=== PATIENT | female | born 1990 | race African-American/Black ===

== ENCOUNTER 2016-05-04 12:22 | Inpatient (IN) | payer MEDICARE ==
--- NOTE | ~2016-05-04 | PN ---
Unit #: [id number] #: [id number] Patient: SOL NEWTON [id number] [facility] [address] [place] [address] [id number] MR#: [id number] NAME: SOL NEWTON ROOM: [facility] Age: 25 Sex: F Admission Date: 05/04/2016 : 1990 Attending Physician: Angel Norman M.D. Admitting Physician: Angel Norman M.D. Primary Care Physician: Generic Doctor Not In System [facility] PROGRESS NOTES DATE 05/06/2016 DISCUSSION Ms. Sinclair is a 25-year-old female seen on 05/06/2016. Patient interviewed. Chart reviewed. Obtained information from nursing staff. Patient reported hearing voices, paranoid. Subsequently, patient was given Vistaril 25 mg. Currently on Latuda and Vistaril. Mood sad, dysphoric, labile, guarded. Complete review of system unremarkable. MENTAL STATUS EXAMINATION General appearance, patient dressed in hospital attire. Attention span, concentration fair. Oriented in place and person. Mood and affect labile. Speech monotone. Thought process concrete. Patient reported hearing voices, guarded, paranoid but denied any thoughts of harming self or others but having those thoughts crossing her mind. Recent and remote memory poor. Insight and judgement poor. DIAGNOSIS Schizoaffective disorder, bipolar type. ASSESSMENT/PLAN Advised to continue with current medication and therapeutic protocol. Will monitor response to medication and make further adjustment of medication. Dictated by... Frankie Hunter/fam TD: 05/09/2016 17:29 JOB #: [id number] Unit #: [id number] #: [id number] Patient: SOL NEWTON [facility] PROGRESS NOTES Page 1 of 1 X Angel Norman MD X PROGRESS NOTE
--- NOTE | ~2016-05-04 | HP ---
Unit #: [id number] #: [id number] Patient: DOTTIE NEWTON [id number] [facility] [address] [place] [address] [id number] I MR#: [id number] NAME: DOTTIE NEWTON ROOM: P110 Age: 25 Sex: F Admission Date: 05/04/2016 : 1990 Attending Physician: Angel Norman M.D. Admitting Physician: Angel Norman M.D. Primary Care Physician: Generic Doctor Not In System HISTORY AND PHYSICAL HISTORY OF PRESENT ILLNESS Dottie is a 25 year old, admitted to [address] [place] [address] from our outpatient program after she reported to staff that she was having auditory hallucinations telling her to hurt herself. She is a poor historian so her history is taken from her chart. PAST MEDICAL HISTORY 1. Obesity. 2. Patient reports she is 22 weeks . PAST SURGICAL HISTORY Nothing reported. ALLERGIES No known drug allergies. SOCIAL HISTORY She smokes one half pack per day, denies alcohol, admits to a history of crack cocaine use but nothing since March 2016. FAMILY HISTORY Medically noncontributory. REVIEW OF SYSTEMS CONSTITUTIONAL: No fever or chills. HEENT: Denies any sore throat, ear pain or runny nose. CARDIOVASCULAR: Denies chest pain, irregular heart rhythm or palpitations. CHEST: Denies shortness of breath or cough. No hemoptysis. GASTROINTESTINAL: Denies nausea, vomiting, diarrhea or chronic constipation. ENDOCRINE: Denies history of increased thirst or urination. No recent significant weight loss or gain. GENITOURINARY: Denies dysuria, frequency, or hematuria. SKIN: Denies any rashes. HEMATOLOGIC: Denies history of increased bleeding or bruising. MUSCULOSKELETAL: Denies any hot, swollen joints. No generalized muscle pain. NEUROLOGIC: Denies problems with vision or speech. No frequent, severe headaches. No numbness, tingling or weakness in any extremities. Denies loss of bladder or bowel control. CURRENT MEDICATIONS 1. Latuda 20 mg q.h.s. Unit #: [id number] #: [id number] Patient: DOTTIE NEWTON 2. Vistaril 25 mg b.i.d. 3. Milk of magnesia p.r.n. 4. Maalox p.r.n. 5. Tylenol p.r.n. PHYSICAL EXAMINATION GENERAL: Alert, well-nourished, no apparent distress. VITAL SIGNS: Blood pressure 120/76, heart rate 64, respirations 16, and temperature 98.6. WEIGHT: 222 pounds. HEIGHT: 5 feet 1 inch. SKIN: Warm and dry without rash or lesion. HEENT: Normocephalic. TMs not viewed. Oral and nasal passages clear. Conjunctivae clear. PERRLA. EOMs intact. NECK: Supple without lymphadenopathy or thyromegaly. HEART: Regular rate and rhythm without murmur. LUNGS: Clear. ABDOMEN: Soft, nontender. : Not done. EXTREMITIES: No evidence of cyanosis, clubbing or edema. Moves all without focal deficit. NEUROLOGICAL: Grossly within normal limits. Cranial Nerves: II: Visual fiore are intact. III, IV AND : Extraocular movements are intact. Pupils are equal, round and reactive to light. V: Facial sensation is grossly normal. VII: Facial movements and expression are normal. VIII: Auditory acuity grossly intact. IX, X: Uvula is midline. Phonation is normal. XI: Patient shrugs shoulders and turns head normally. XII: Tongue protrudes in the midline. Sensory and Motor Function: Sensory and motor sensation is grossly normal. Motor: moves all extremities well. Coordination: Gait is normal. Deep Tendon Reflexes: Intact. IMPRESSION Psychiatric admission. RECOMMENDATIONS Psychiatric, per psychiatrist. MEDICAL I see no contraindications to participating in facility's activities. MEDICAL PROGNOSIS Good. MEDICAL CONDITION Stable. Dictated by... Yadi Bartholomew P.A.-C. for Frankie Manzanares/sergo TD: 05/05/2016 08:13 JOB #: [id number] Unit #: [id number] #: [id number] Patient: DOTTIE NEWTON HISTORY AND PHYSICAL Page 1 of 1 X Yadi Bartholomew HISTORY AND PHYSICAL
--- NOTE | ~2016-05-04 | PN ---
Unit #: [id number] #: [id number] Patient: SOL NEWTON [id number] [facility] [address] [place] [address] [id number] I MR#: [id number] NAME: SOL NEWTON ROOM: [facility] Age: 25 Sex: F Admission Date: 05/04/2016 : 1990 Attending Physician: Angel Norman M.D. Admitting Physician: Frankie Hunter PROGRESS NOTES DATE OF SERVICE: 05/07/2016 DISCUSSION Ms. Carmella Newton is a 25-year-old female, seen on 05/07/2016. The patient interviewed, chart reviewed, and obtained information from nursing staff. The patient reports feeling better, decrease in anxiety and paranoia, but still seclusive and isolative, but making progress. REVIEW OF SYSTEMS Complete review of systems unremarkable. MENTAL STATUS EXAMINATION General appearance, the patient dressed casually. Attention span and concentration, fair. Oriented in time, place, and person. Mood and affect were labile. Speech, monotone. Thought process, concrete. The patient denied any thoughts of harming self or others or any hallucination. Recent and remote memory, fair to poor. Insight and judgment, fair to poor. DIAGNOSIS Schizophrenia, chronic paranoid type. ASSESSMENT AND PLAN Advised to consider discharge tomorrow if the patient continues to do well with a plan to follow up in IOP level of care. Dictated by... Frankie Hunter/edelmira TD: 05/07/2016 18:55 JOB #: [id number] Unit #: [id number] #: [id number] Patient: SOL NEWTON PROGRESS NOTES Page 1 of 1 X Angel Norman MD PROGRESS NOTE
--- NOTE | ~2016-05-04 | A ---
[facility] Nutrition Therapy DATE: 05/05/16 Patient: SOL NEWTON Physician: CARL Address: [address] [facility] Room/Bed: [address], Zip: [place] [address] Admit Date: 05/04/16 Date of : [birth year] Height: 5 1 Weight: [id number] NUTRITIONAL ASSESSMENT: REASON: C/S- "PATIENT IS " PATIENT ADMITTED FOR A/V/C HALLUCINATIONS, SI, PARANOIA PMH: HX COCAINE ABUSE Anthropometrics: HT: 5'1", WT: 222#, BMI: 41.9, %IBW: 211% Labs: 05/05/16- GLU: 67, BUN: 6, NA: 133, CA: 8.0, ALB: 2.5 Meds: LATUDA, VISTARIL Assessment: CHART REVIEWED, EVENTS NOTED. PATIENT IS A 25 Y/O FEMALE ADMITTED FROM THE OUTPATIENT PROGRAM D/T A/V/C HALLUCINATIONS, PARANOIA, AND SI. PATIENT IS ALSO EXPERIENCING SEVERE ANXIETY. PATIENT IS CURRENTLY ON DISABILITY, LIVES AT [facility], SMOKES 1/2 PPD, AND DENIES CURRENT SUBSTANCE ABUSE. PATIENT HAS A HX OF COCAINE USE, WITH LAST USE IN 03/2016. PATIENT IS NOTED TO BE A POOR HISTORIAN. SHE IS CURRENTLY 5 MONTHS . SHE HAS BEEN NON-COMPLIANT WITH MEDICATIONS X 1 YEAR, AND SHE HAS A HX OF INPATIENT PSYCH HOSPITALIZATIONS. PATIENT STATED A FAIR APPETITE WITH AN 70# WEIGHT [employer] COORDINATOR LAST 5 MONTHS, AND THAT HER WEIGHT VARIES. THERE ARE CURRENTLY NO SKIN OR GI ISSUES NOTED ATT. PATIENT IS ON A REGULAR DIET WITH LARGE PORTION ENTREES. PATIENT'S BMI IS 41.9, WHICH IS ABOVE A HEALTHY RANGE, AND SHE IS 211% OF HER IBW. DIET EDUCATION INAPPROPRIATE ATT, HOWEVER THIS RD WILL CONTINUE TO F/U WITH PATIENT AND HER PO INTAKES AND WEIGHT. Dx: ADEQUATE NUTRIENT INTAKE R/T CURRENT CONDITION AEB FAIR APPETITE, NO NUTRITIONAL RISK POINTS, NO KNOWN WEIGHT LOSS Intervention: 1. REGULAR DIET, 2. MEDS PER MD, 3. PSYCH Monitoring, Evaluation and Goals: 1. ADEQUATE PO INTAKES >50% OF MEALS 2. PREVENT, CORRECT MICRO/MACRO NUTRIENT DEFICIENCIES MONITOR: WEIGHTS, LABS, PO/FLUID INTAKES Recommendations: 1. CONTINUE REGULAR DIET TOLERATED. PATIENT IS CURRENTLY 22 WEEKS AND SHOULD INCREASE HER CALORIC INTAKE BY A MAXIMUM 340 KCALS DAILY. D/T PATIENT'S OBESE STATUS, [facility] Nutrition Therapy DATE: 05/05/16 Patient: SOL NEWTON Physician: CARL Address: [address] [facility] Room/Bed: [address], Zip: [place] [address] Admit Date: 05/04/16 Date of : [birth year] Height: 5 1 Weight: [phone] PATIENT SHOULD ONLY GAIN 11-20# OVER THE COURSE OF HER ENTIRE . RECOMMEND ONLY INCREASING LARGE PORTION ENTREES AT DINNER DURING 2ND TRIMESTER. 2. ENCOURAGE ADEQUATE PO AND FLUID INTAKES 3. ADD A MVI TO DAILY MEDICATION REGIMEN FOR ADDED NUTRIENT SUPPORT 4. OBTAIN WEIGHT ROUTINELY (EVEYR 3-4 DAYS) TO ENSURE PATIENT IS CONSUMING ADEQUATE KCAL INTAKE 5. CONSULT RD WITH ANY FURTHER NUTRIITON CONCERNS. WILL CONTINUE TO MONITOR WEIGHTS AND PO INTAKES. RD TO F/U PER PROTOCOL AND PRN R/T PATIENT MILDLY COMPROMISED Respectfully, OLIVIA CORRAL, RD, LD [employer] [facility] cc: client file
--- NOTE | ~2016-05-04 | PN ---
Unit #: [id number] #: [id number] Patient: SOL NEWTON [id number] [facility] [address] [place] [address] [id number] MR#: [id number] NAME: SOL NEWTON ROOM: P258 Age: 25 Sex: F Admission Date: 05/04/2016 : 1990 Attending Physician: Angel Norman M.D. Admitting Physician: Angel Norman M.D. Primary Care Physician: Generic Doctor Not In System [facility] PROGRESS NOTES DATE OF SERVICE: 05/05/2016 DISCUSSION Ms. Saul Newton is a 25-year-old female, seen on 05/05/2016. The patient interviewed, chart reviewed, obtained information from nursing staff. The patient was compliant and cooperative. Mood, sad and dysphoric. Flat affect, guarded. The patient reported hearing voices and having suicidal ideation. REVIEW OF SYSTEMS Complete review of systems unremarkable. MENTAL STATUS EXAMINATION General appearance, the patient dressed casually. Attention span and concentration, fair. Oriented in place and person. Mood and affect were sad and dysphoric. Speech, monotone. Thought process, concrete. The patient reported having hallucination, suicidal ideation, guarded, and paranoid. Recent and remote memory, poor. Insight and judgment, poor. DIAGNOSES Schizophrenia, chronic paranoid type versus schizoaffective disorder. ASSESSMENT AND PLAN Advised to continue with current medication and therapeutic protocol. We will monitor response to medication and make further adjustment of medication. The patient's test is positive. Quantitative test pending. CBC was remarkable for hemoglobin 10.1. Thyroid function tests within normal range. CMP remarkable for sodium 133 and glucose 67. Ordered dietary consult as the patient is and requested for larger portion, which was ordered. We will continue to follow. Please feel free to call if any questions. Dictated by... Angel Norman M.D. ARIA/edelmira TD: 05/05/2016 16:22 JOB #: [id number] Unit #: [id number] #: [id number] Patient: SOL NEWTON PROGRESS NOTES Page 1 of 1 X Angel Norman MD PROGRESS NOTE
--- NOTE | ~2016-05-04 | DS ---
Unit #: [id number] #: [id number] Patient: SOL NEWTON [id number] [facility] [address] [place] [address] [id number] MR#: [id number] NAME: SOL NEWTON ROOM: [facility] Age: 25 Sex: F Admission Date: 05/04/2016 : 1990 Discharge Date: 05/08/2016 Attending Physician: Angel Norman M.D. DISCHARGE SUMMARY REASON FOR ADMISSION Hallucination. DIAGNOSTIC STUDIES LABORATORY RESULTS: Remarkable for glucose 67, sodium 133, calcium 8.0. test positive. HOSPITAL COURSE The patient was admitted to inpatient unit on 05/04/2016 and discharged on 05/08/2016. The patient was treated on the inpatient unit with group therapy, individual therapy, medication management. The patient responded well with the above modalities of treatment and following medication; Latuda and Vistaril. Subsequently, the patient was discharged with a plan to follow up in outpatient program. DISCHARGE MEDICATIONS Latuda 20 mg daily for mood stabilization and psychosis, Vistaril 25 mg b.i.d. for anxiety, vitamin supplement. DISCHARGE DIAGNOSES Psychiatric: Bipolar mood disorder, not otherwise specified, F31.89; rule out schizophrenia, F20.0. Secondary diagnosis: Deferred. Medical diagnosis: . Stressors: Psychosocial stressor. DISCHARGE INSTRUCTIONS The patient to follow up in outpatient clinic as per social work coordinator. CONDITION ON DISCHARGE The patient was pleasant and cooperative. Denied any psychotic symptom or any suicidal ideation. PROGNOSIS Guarded. DIET AND ACTIVITY As tolerated. Unit #: [id number] #: [id number] Patient: SOL NEWTON Dictated by... Frankie Hunter/edelmira TD: 05/09/2016 01:34 JOB #: [id number] DISCHARGE SUMMARY Page 1 of 1 X Angel Nomran MD X DISCHARGE SUMMARY
--- NOTE | ~2016-05-04 | PN ---
Unit #: [id number] #: [id number] Patient: SOL NEWTON [id number] [place] [address] [id number] MR#: [id number] NAME: SOL NEWTON ROOM: P258 Age: 25 Sex: F Admission Date: 05/04/2016 : 1990 Attending Physician: Angel Norman M.D. Admitting Physician: Angel Norman M.D. Primary Care Physician: Generic Doctor Not In System [facility] PROGRESS NOTES DATE OF SERVICE: 05/03/2016 SUBJECTIVE Ms. Sinclair is a 25-year-old female, seen on 05/03/2016. The patient is currently 28 weeks and compliant with medication. The patient reports that she had a good visit and her daughter also approved for medication. The patient is currently on combination of Latuda and Vistaril. The patient denied any side effects from medication, pleasant and cooperative during interview. Denied any use of drugs or alcohol. REVIEW OF SYSTEMS Complete review of systems unremarkable. MENTAL STATUS EXAMINATION General appearance, the patient dressed casually. Attention span and concentration, fair. Oriented in time, place, and person. Mood and affect were sad and dysphoric. Speech, monotone. Thought process, concrete. The patient denied any thoughts of harming self or others, but still having hallucination, paranoia. Denied any command hallucination. Recent and remote memory, fair to poor. Insight and judgment, fair to slightly impaired. DIAGNOSES Bipolar mood disorder, not otherwise specified, F31.89. ASSESSMENT AND PLAN 1. Supportive psychotherapy and psychoeducation provided to the patient. 2. Educated about benefits and side effects of medication and course and prognosis of illness. 3. The patient was given crisis line #[phone]. 4. Advised to continue with current combination of Vistaril 25 mg b.i.d. and Latuda 25 mg at bedtime. If needed, consider further adjustment of medication. Dictated by... Angel Norman M.D. ARIA/edelmira Unit #: [id number] #: [id number] Patient: SOL NEWTON TD: 05/08/2016 20:56 JOB #: [id number] [facility] PROGRESS NOTES Page 1 of 1 X Angel Norman MD PROGRESS NOTE
--- NOTE | ~2016-05-04 | TN ---
Unit #: [id number] #: [id number] Patient: SOL NEWTON [id number] [facility] [address] [place] [address] [id number] I MR#: [id number] NAME: SOL NEWTON ROOM: P258 Age: 25 Sex: F Admission Date: 05/04/2016 : 1990 Discharge Date: Attending Physician: Angel Norman M.D. LOC TRANSFER NOTE DATE OF SERVICE: 05/04/2016 The patient was transferred from outpatient to inpatient level of care on 05/04/2016. ORIGINAL REASON FOR ADMISSION TO THE HOSPITAL Depression and anxiety. DISCHARGE MEDICATIONS Name, dosage, indication for use: Latuda 20 mg daily for mood stabilization and Vistaril 25 mg t.i.d. for anxiety. RESPONSE TO TREATMENT Poor. REASON FOR TRANSFER TO ANOTHER LEVEL OF CARE The patient transferred from outpatient program to inpatient level of care because of deterioration of the patient's condition. The patient reported not taking her medication, increasingly paranoid, having command hallucination and suicidal ideation. Denied any homicidal ideation. The patient reported increase in symptoms and increase in auditory and visual hallucination. Reports children playing, reports smelling things, also reported seeing things, and suicidal thoughts. Unable to contract for safety. Needing inpatient admission. CURRENT SYMPTOMATOLOGY AND CLINICAL JUSTIFICATION FOR TRANSFER Please see above. COMPLETE REVIEW OF SYSTEMS HEENT: Eyes, clear. Ears, nose, mouth, and throat; clear. CARDIOVASCULAR: Unremarkable. RESPIRATORY: Unremarkable. GI: Unremarkable. : Unremarkable. SKIN: Unremarkable. LYMPH NODE: Unremarkable. NEUROLOGIC: Unremarkable. ENDOCRINE: Unremarkable. HEMATOLOGIC: Unremarkable. ALLERGIC/IMMUNOLOGIC: Unremarkable. MUSCULOSKELETAL: Muscle strength and tone, no atrophy or abnormal movement. Gait normal. Unit #: [id number] #: [id number] Patient: SOL NEWTON MENTAL STATUS EXAMINATION CONSTITUTIONAL: Measurement of vital signs; temperature 98.3, heart rate 64, respiratory rate 16, and blood pressure 120/76. Height 5 feet 1 inch and weight 222 pounds. GENERAL APPEARANCE: The patient dressed casually. The patient did not show any facial deformity. MUSCULOSKELETAL: Please see above. PSYCHIATRIC EXAMINATION Description of speech, regular rate. Description of thought process, goal directed. Description of association, intact. Description of abnormal psychotic thinking; guarded, paranoid, having suicidal ideation and command hallucination. Description of the patient's judgment: Concerning everyday activity, poor. Social situation, poor. Concerning psychiatric condition, poor. Complete mental status examination; oriented in time, place, and person. Recent and remote memory, fair. Attention span and concentration, fair. Language, able to name object and repeat phrases. Fund of knowledge, aware of current event and passive vocabulary intact. Mood and affect, sad and dysphoric. Insight and judgment, fair to poor. ADMITTING DIAGNOSES Psychiatric: Bipolar mood disorder, not otherwise specified, F31.89; rule out schizophrenia, F20.0; and rule out schizoaffective disorder. Secondary diagnosis: Deferred. Medical diagnosis: . Stressors: Psychosocial stressors. PSYCHIATRIC PLAN AND TREATMENT GOAL AND DISCHARGE PLAN 1. Advised to admit the patient on the inpatient unit. Provide safe, supportive, and structured environment. 2. Ordered labs; CBC, CMP, UA, UDS, and test, quantitative. 3. Advised to resume the patient's medication, Latuda and Vistaril. We will continue to follow. The patient to attend all the programing on the inpatient unit. TREATMENT GOAL To attain euthymic mood, gain insight into her problem, and learn coping skills. DISCHARGE PLAN Plan to stabilize the patient and consider followup in outpatient program. ESTIMATED LENGTH OF STAY 2 weeks. Dictated by... Angel Norman M.D. ARIA/edelmira TD: 05/05/2016 16:52 Unit #: [id number] #: [id number] Patient: SOL NEWTON JOB #: [id number] LOC TRANSFER NOTE Page 1 of 1 X Angel Norman MD X LOC TRANSFER NOTE
[2016-05-05 10:02] LABS: BASOPHIL% 0.2 % (0-2.5); EOSINOPHIL# 0.1 X10e3 (0-0.7); EOSINOPHIL% 1.2 % (0.0-7.0); HEMATOCRIT 31.1 % (35.0-45.0); HEMOGLOBIN 10.1 gm/dL (12.0-16.0); LYMPHOCYTE# 1.8 X10e3 (1.0-3.5); LYMPHOCYTE% 24.6 % (17.0-45.0); MEAN CORPUSCULAR HEMOGLOBIN 26.7 PG (28-34); MEAN CORPUSCULAR HGB CONC 32.6 g/dL (30-36); MEAN PLATELET VOLUME 9.9 FL (6.5-11.5); MONOCYTE# 0.5 X10e3 (0-1.0); MONOCYTE% 6.9 % (3.0-12.0); NEUTROPHIL% 67.1 % (40-75); PLATELET COUNT 147 X10e3 (140-420); RED BLOOD COUNT 3.79 X10e (3.90-5.30); RED CELL DISTRIBUTION WIDTH 13.4 % (11.0-15.5); WHITE BLOOD COUNT 7.4 X10e3 (4.0-10.5)
[2016-05-05 10:04] LABS: DIFF IND NO
[2016-05-05 10:31] LABS: THYROID STIMULATING HORMONE 0.63 uIU/ml (0.34-5.60)
[2016-05-05 10:41] LABS: FREE THYROXIN (T4) 0.67 ng/dL (0.58-1.64)
[2016-05-05 10:52] LABS: ALBUMIN SERUM 2.5 g/dL (3.5-5.0); BILIRUBIN,TOTAL 0.3 mg/dL (0.2-2.0); CREATININE SERUM 0.6 mg/dL (0.6-1.4); GLOM FILT RATE Estimated 146.8 mL/min (>60); POTASSIUM 3.9 mmol/L (3.5-5.1); PROTEIN TOTAL SERUM 5.2 g/dL (6.0-8.3)
[2016-05-06 12:45] LABS: URINE APPEARANCE CLEAR; URINE BILIRUBIN NEG (NEG); URINE BLOOD NEG (NEG); URINE COLOR YELLOW; URINE GLUCOSE NEG (NEG); URINE KETONE NEG (NEG); URINE LEUKOCYTE ESTERASE 2+ (NEG); URINE NITRATE NEG (NEG); URINE PROTEIN NEG (NEG); URINE SPECIFIC GRAVITY 1.002 (1.003-1.035); URINE UROBILINOGEN 0.2 MG/DL (NEG)
[2016-05-06 12:52] LABS: URBCS1 AUWI 0-2 /[HPF] (0-2); URINE BACTERIA AUWI 1+ (NEGATIVE); URINE SQUAMOUS EPITHELIAL CELL OCC /[HPF]
[2016-05-06 13:08] LABS: AMPHETAMINE NEG (NEG); BARBITURATES NEG (NEG); BENZODIAZEPINES NEG (NEG); COCAINE NEG (NEG); MARIJUANA NEG (NEG); OPIATES NEG (NEG); TRICYCLIC ANTIDEPRESSANTS NEG (NEG); U METHADONE NEG (NEG)
[2016-05-07 11:47] LABS: URINE APPEARANCE CLOUDY; URINE BILIRUBIN NEG (NEG); URINE BLOOD NEG (NEG); URINE COLOR YELLOW; URINE GLUCOSE NEG (NEG); URINE KETONE NEG (NEG); URINE LEUKOCYTE ESTERASE 2+ (NEG); URINE NITRATE NEG (NEG); URINE PROTEIN NEG (NEG); URINE SPECIFIC GRAVITY 1.018 (1.003-1.035); URINE UROBILINOGEN 0.2 MG/DL (NEG)
[2016-05-07 11:52] LABS: URINE BACTERIA AUWI 1+ (NEGATIVE); URINE SQUAMOUS EPITHELIAL CELL MOD /[HPF]
== END 2016-05-08 10:20 | disposition home or self-care (01) | DRG 885 ==
LOC: P1S 12:22 → P2L 05-05 15:01
PROVIDERS: Psychiatry & Neurology Psychiatry
DX: F31.89 Other bipolar disorder (principal); F20.0 Paranoid schizophrenia; F41.9 Anxiety disorder, unspecified; Z33.1 Pregnant state, incidental; F17.210 Nicotine dependence, cigarettes, uncomplicated
CPT/HCPCS: 80053; 80307; 81003; 84439; 84443; 84703; 85025; 90853